=== PATIENT | female | born 1960 | race Caucasian/White ===

== ENCOUNTER 2020-01-09 10:58 | Outpatient (CLI) | payer SELFPAY ==
[2020-01-09 11:46] LABS: Anion Gap 14.3 (5-19); Blood Urea Nitrogen 25 mg/dL (8-23); Calcium 9.7 mg/dL (8.5-10.5); Carbon Dioxide 29 mmol/L (22-29); Chloride 102 mmol/L (98-107); Glomerular Filtration Rate 63.4 mL/min (90-130); Glucose 105 mg/dL (65-115); Osmolality Calculated 289 mOsm/kg (285-295); Potassium 4.3 mmol/L (3.5-5.1); Sodium 141 mmol/L (136-145)
== END 2020-01-09 10:59 | disposition home or self-care (01) ==
LOC: LAB 10:59
DX: Z79.899 Other long term (current) drug therapy (principal)
CPT/HCPCS: 80048

== ENCOUNTER → 2023-07-10 08:23 | Outpatient (BNVA) | payer MEDICARE, SELFPAY | PROVIDERS: PCP Family Medicine; Visit Provider Family Medicine | DX: Z13.6 Encounter for screening for cardiovascular disorders (principal); E03.9 Hypothyroidism, unspecified; Z78.0 Asymptomatic menopausal state | CPT/HCPCS: 80053; 80061; 84443; 85025 ==

== ENCOUNTER 2023-07-14 13:57 | Outpatient (CLI) | payer MEDICARE, SELFPAY ==
--- NOTE | 2023-07-14 14:30 | XR_ITS ---
WS: [id number] DEXA (DUAL ENERGY X-RAY ABSORPTIOMETRY) Bone mineral density was performed using a [employer] machine. HISTORY: postmenopausal COMPARISON: None available. Lumbar spine BMD (L1-L4): 1.050 g/cm2 T score: -1.1 Z score: -0.7 Total hip BMD: Left: 0.946 g/cm2. T score: -0.5 Z score: -0.1 Right: 0.868 g/cm2. T score: -1.1 Z score: -0.7 10 year probability of a major osteoporotic fracture is 9.3%. IMPRESSION: OSTEOPENIA based upon the WHO classification for females.
== END 2023-07-14 13:58 | disposition home or self-care (01) ==
PROVIDERS: PCP Family Medicine; Visit Provider Family Medicine
DX: Z78.0 Asymptomatic menopausal state (principal); M85.80 Other specified disorders of bone density and structure, unspecified site
CPT/HCPCS: 77080

== ENCOUNTER → 2023-08-03 09:18 | Outpatient (BNVA) | payer MEDICARE, SELFPAY | PROVIDERS: PCP Family Medicine; Visit Provider Family Medicine | DX: Z01.419 Encounter for gynecological examination (general) (routine) without abnormal findings (principal); Z12.31 Encounter for screening mammogram for malignant neoplasm of breast | CPT/HCPCS: 87624 ==

== ENCOUNTER 2023-08-05 10:53 | Outpatient (CLI) | payer MEDICARE, SELFPAY ==
--- NOTE | 2023-08-05 11:00 | MM_ITS ---
WS: [email or web address] BILATERAL SCREENING DIGITAL TOMOSYNTHESIS MAMMOGRAM WITH CAD HISTORY: screening mammogram COMPARISON: 11/15/2019 Bilateral CC and MLO views with tomosynthesis and synthetic mammography submitted. Computer aided det ection analyzed. Breast composition: There are scattered areas of fibroglandular density. No suspicious masses, microc alcifications or architectural distortion. Benign calcifications in each breast. IMPRESSION: MM/[place] [id number] BI-RADS: 2-Benign FOLLOW UP: 1 Year Follow-up
== END 2023-08-05 10:54 | disposition home or self-care (01) ==
LOC: MOBLMAM 10:59
PROVIDERS: PCP Family Medicine; Visit Provider Family Medicine
DX: Z12.31 Encounter for screening mammogram for malignant neoplasm of breast (principal)
CPT/HCPCS: 77063; 77067

== ENCOUNTER → 2024-03-03 10:00 | Outpatient (BNVA) | payer MEDICARE, OTHER, SELFPAY | PROVIDERS: PCP Family Medicine; Visit Provider Family Medicine | DX: E06.3 Autoimmune thyroiditis (principal); M17.11 Unilateral primary osteoarthritis, right knee | CPT/HCPCS: 80053; 84443 ==

== ENCOUNTER → 2024-08-24 10:25 | Outpatient (BNVA) | payer MEDICARE, SELFPAY | PROVIDERS: PCP Family Medicine | DX: E06.3 Autoimmune thyroiditis (principal); M79.674 Pain in right toe(s) | CPT/HCPCS: 73630 ==

== ENCOUNTER 2024-08-30 13:33 | Outpatient (CLI) | payer MEDICARE, SELFPAY ==
--- NOTE | 2024-08-30 13:20 | MM_ITS ---
WS: [email or web address] BILATERAL 3D TOMOSYNTHESIS DIGITAL SCREENING MAMMOGRAPHY WITH CAD CLINICAL INFORMATION: screening HISTORY: Screening mammogram. No current complaints. COMPARISON: 2022 TECHNIQUE: Bilateral CC and MLO views. FINDINGS: Scattered fibroglandular densities bilaterally. No suspicious focal mass, asymmetry, calcifications, or architectural distortion. No evidence of malignancy. A few incidental punctate and lucent centered calcifications. MM/MM scr tomosynthesis [id number] IMPRESSION: DENSITY: There are scattered areas of fibroglandular density. BI-RADS: 2 - Benign. FOLLOW UP: 1 Year Follow-up Recommend return to annual screening mammography.
== END 2024-08-30 13:34 | disposition home or self-care (01) ==
LOC: MOBLMAM 13:35
DX: Z12.31 Encounter for screening mammogram for malignant neoplasm of breast (principal); R92.323 Mammographic fibroglandular density, bilateral breasts; R92.1 Mammographic calcification found on diagnostic imaging of breast
CPT/HCPCS: 77063; 77067; 80053; 80061; 84439; 84443

== ENCOUNTER → 2025-04-11 09:46 | Outpatient (BNVA) | payer MEDICARE, SELFPAY | DX: E06.3 Autoimmune thyroiditis (principal); Z13.6 Encounter for screening for cardiovascular disorders | CPT/HCPCS: 80053; 80061; 84439; 84443; 84550 ==

== ENCOUNTER → 2025-04-18 15:19 | Outpatient (BNVA) | payer MEDICARE, SELFPAY | PROVIDERS: Referring Provider Nurse Practitioner Family; Visit Provider Podiatrist Foot & Ankle Surgery | DX: M79.674 Pain in right toe(s) (principal); G89.29 Other chronic pain; M12.571 Traumatic arthropathy, right ankle and foot; M20.21 Hallux rigidus, right foot | CPT/HCPCS: 73630; 99204 ==

== ENCOUNTER → 2025-08-30 08:08 | Outpatient (BNVA) | payer MEDICARE, SELFPAY | PROVIDERS: Visit Provider Podiatrist Foot & Ankle Surgery | DX: M20.21 Hallux rigidus, right foot (principal); M20.11 Hallux valgus (acquired), right foot; M12.571 Traumatic arthropathy, right ankle and foot | CPT/HCPCS: 99214 ==

== ENCOUNTER 2025-08-31 12:34 | Outpatient (CLI) | payer MEDICARE, SELFPAY ==
--- NOTE | 2025-08-31 12:40 | XR_ITS ---
WS: [email or web address] XR knee RT 3V* [id number] REASON FOR EXAM: right knee pain FINDINGS: No fracture or focal bone lesion. The medial joint space is intact with mild subchondral sclerosis and moderate osteophytosis. There is mild narrowing of the lateral joint space with mild subchondral sclerosis and moderate osteophytosis. Patellofemoral joint space is intact with mild subchondral sclerosis and osteophytosis. Minimal osteophytosis of the opposing femoral condyles. XR/XR knee RT 3V* [id number] IMPRESSION: Mild to moderate osteo arthritis of the right knee as above.
--- NOTE | 2025-08-31 12:40 | XR_ITS ---
WS: [email or web address] XR knee LT 3V* [id number] REASON FOR EXAM: left knee pain FINDINGS: No fracture or focal bone lesion. The medial joint space is intact and well preserved with minimal subchondral sclerosis. Mild narrowing of the lateral joint space with minimal subchondral sclerosis. The patellofemoral joint space is intact with minimal subchondral sclerosis of the patella. XR/XR knee LT 3V* [id number] IMPRESSION: Minimal osteoarthritis as above.
== END 2025-08-31 12:35 | disposition home or self-care (01) ==
LOC: RAD 12:37
PROVIDERS: Visit Provider Pediatrics
DX: M17.0 Bilateral primary osteoarthritis of knee (principal); R39.9 Unspecified symptoms and signs involving the genitourinary system
CPT/HCPCS: 73562; 81000; 87086

== ENCOUNTER 2025-09-06 08:58 | Outpatient (CLI) | payer MEDICARE, SELFPAY ==
--- NOTE | 2025-09-06 09:04 | MM_ITS ---
WS: [email or web address] BILATERAL SCREENING DIGITAL TOMOSYNTHESIS MAMMOGRAM WITH CAD HISTORY: SCREENING COMPARISON: 08/30/2024, 08/05/2023, Bilateral CC and MLO views with tomosynthesis and synthetic mammography submitted. Computer aided detection analyzed. Breast composition: There are scattered areas of fibroglandular density. No suspicious masses, microcalcifications or architectural distortion. Benign calcifications scattered within each breast. MM/MM scr tomosynthesis [id number] IMPRESSION: BI-RADS: 2 - Benign. FOLLOW UP: 1 Year Follow-up
== END 2025-09-06 08:59 | disposition home or self-care (01) ==
LOC: RAD 08:59
DX: Z12.31 Encounter for screening mammogram for malignant neoplasm of breast (principal); R92.323 Mammographic fibroglandular density, bilateral breasts; R92.1 Mammographic calcification found on diagnostic imaging of breast
CPT/HCPCS: 77063; 77067

== ENCOUNTER 2025-09-20 07:30 | Outpatient (RCR) | payer MEDICARE, SELFPAY | END 2025-10-15 23:59 | disposition home or self-care (01) | LOC: SPT 07:30 | PROVIDERS: Visit Provider Pediatrics | DX: M17.11 Unilateral primary osteoarthritis, right knee (principal) | CPT/HCPCS: 97110; 97161 ==

== ENCOUNTER 2025-09-21 14:25 | Outpatient (CLI) | payer MEDICARE, SELFPAY ==
--- NOTE | 2025-09-21 14:30 | XR_ITS ---
WS: [email or web address] SCREENING DEXA SCAN [employer] CLINICAL INFORMATION: postmenopausal COMPARISON: 2022 FINDINGS: The L1-L4 bone mineral density measures 1.066 g/cm2. This corresponds to a T score score of -1.0 and Z score of -0.5. Left femoral neck bone mineral density measures 0.902 g/cm2. This corresponds to a T score of -0.8 and Z score of -0.3. Right femoral neck bone mineral density measures 0.854 g/cm2. This corresponds to a T score -1.2of and Z score of -0.7. Mean femoral neck bone mineral density measures 0.878 g/cm2. This corresponds to a T score of -1.0 and Z score of -0.5. XR/XR DEXA axial skeleton* [id number] IMPRESSION: Osteopenia lumbar spine. Osteopenia femoral necks. Patient's FRAX calculated 10 year probability for major osteoporotic fracture i s 23.5% and osteoporotic hip fracture is 4.1%. Bone density lumbar spine increased 1.5% Bone density femoral necks decreased -3.2%
== END 2025-09-21 14:26 | disposition home or self-care (01) ==
LOC: RAD 14:25
DX: Z13.820 Encounter for screening for osteoporosis (principal); Z78.0 Asymptomatic menopausal state; M85.89 Other specified disorders of bone density and structure, multiple sites
CPT/HCPCS: 77080

== ENCOUNTER 2025-10-16 05:00 | Outpatient (RCR) | payer MEDICARE, SELFPAY | END 2025-11-15 23:59 | disposition home or self-care (01) | LOC: SPT 05:00 | PROVIDERS: Visit Provider Pediatrics | DX: M17.11 Unilateral primary osteoarthritis, right knee (principal) | CPT/HCPCS: 97110 ==